=== PATIENT | female | born 2000 | race Caucasian/White ===

== ENCOUNTER 2024-11-11 10:15 | Outpatient (RCR) | payer BC, SELFPAY ==
[2024-11-10 11:03] VITALS: BMI 29.8
[2024-11-10 11:54] VITALS: BP 102/62; PULSE 68; TEMP 36.9
--- NOTE | 2024-11-10 11:54 | PC.ADMIT ---
Patient is a 24 year old trans male who uses he/they pronouns who was referred to PHP by their therapist d/t struggling with sxs of depression and anxiety. Patient reports they were on a DEX d/t their mental health and eventually quit their job. Regarding employment patient stated, Just quit job after working there for 3.5 years. It was a bad place for my mental health . 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 Patient reports they live with partner who is supportive. Patient is alert and oriented x4. They are calm and cooperative. They presented with depressed mood and anxious affect. Denied SI, no HI. They were given a copy of their safety plan if needed. Patient reports history of reaching out to crisis when needed. Patient reports struggling with lack of motivation to do anything. Reports house and car are both disorganized and this causes increased anxiety. Unable to get their car fixed and thus unable to drive car as the car needs inspection before able to drive. I Asked patient if someone could help with this. They stated their partner is able to help them however they will not let the partner help d/t control issues that they struggle with. Medications updated with patient and patient's pharmacy. Patient reports that they take medications as prescribed. Patient reports that they have cut down their use of marijuana from using throughout the day every day to using once a day at night for the past 2-3 weeks. Would like more support with this while attending PHP.
--- NOTE | 2024-11-10 15:48 | HO.PHP ---
Client's case has been opened and reviewed in team.
--- NOTE | 2024-11-16 16:20 | HO.PHP ---
Bhumi (goes by Will) called PHP on 11/15/24 to report he will not be returning. Pt completed 1 day on 11/10/24, then called out 3 days in a row. Pt was called by handbook writer 2x's and 2 voicemails were left requesting a call back to complete discharge. Pt did not reply. Pt has been discharged AMA. See discharge summary.
== END 2024-11-11 23:59 | disposition home or self-care (01) ==
LOC: HO.PHPA 10:15
PROVIDERS: Visit Provider Psychiatry & Neurology Psychiatry
DX: F33.2 Major depressive disorder, recurrent severe without psychotic features (principal); F90.0 Attention-deficit hyperactivity disorder, predominantly inattentive type; F41.1 Generalized anxiety disorder
CPT/HCPCS: 90791; 90853